=== PATIENT | female | born 1990 | race African-American/Black ===

== ENCOUNTER 2017-06-21 07:09 | Day surgery (SDC) | payer OTHER ==
[~2017-06-21 07:09] MED LIST: HYDROmorphone 2 MG/ML VIAL IV; LIDOCAINE 1% PF 2 ML VIAL. ID; MORPHINE SULFATE 2 MG/ML DISP.SYRIN. IV; ONDANSETRON PF 4 MG/2 ML VIAL. IV; fentaNYL PF VIAL 100 MCG/2 ML VIAL IV
[2017-06-21] MEDS: IV RINGERS,LACTATED 1000ML 1,000 ML IV (08:47)
[2017-06-21] MEDS: ALBUTEROL SULFATE 2.5 MG/3 ML NEBU. NEB (09:03)
[2017-06-21] MEDS ORDERED: fentaNYL PF VIAL 100 MCG/2 ML VIAL ×2 (09:13→10:36)
[2017-06-21] MEDS ORDERED: MIDAZOLAM HCL/PF 2 MG/2 ML VIAL. (09:13)
[2017-06-21] MEDS ORDERED: ONDANSETRON PF 4 MG/2 ML VIAL. (09:13)
[2017-06-21] MEDS ORDERED: DEXAMETHASONE SOD PHOS 20 MG/5 ML VIAL. (09:13)
[2017-06-21] MEDS ORDERED: PROPOFOL 20 ML IV (09:13)
[2017-06-21] MEDS ORDERED: SEVOFLURANE 31 TO 60 MINUTES. IH (10:34)
[2017-06-21] MEDS ORDERED: SEVOFLURANE 61 TO 120 MINUTES. IH (10:34)
[2017-06-21] MEDS ORDERED: SEVOFLURANE 16 TO 30 MINUTES. IH (10:34)
[2017-06-21 10:50] LABS: U PREG PATIENT NEGATIVE (NEG)
[2017-06-21 10:51] LABS: NEG OBC UR NEG; POS OBC UR POS
[2017-06-21] MEDS: fentaNYL PF VIAL 100 MCG/2 ML VIAL IV ×2 (11:33→11:57)
[2017-06-21] MEDS: PROCHLORPERAZINE 10 MG/2 ML VIAL. IV (11:57)
[2017-06-21] MEDS: HYDROcodone/APAP 5/325MG 1 TAB TABLET PO (12:10)
== END 2017-06-21 12:56 | disposition home or self-care (01) ==
LOC: SURG 07:09
DX: N93.9 Abnormal uterine and vaginal bleeding, unspecified (principal); J45.909 Unspecified asthma, uncomplicated; M19.90 Unspecified osteoarthritis, unspecified site; F32.9 Major depressive disorder, single episode, unspecified; Z72.89 Other problems related to lifestyle; Z98.890 Other specified postprocedural states; Z87.39 Personal history of other diseases of the musculoskeletal system and connective tissue; Z90.49 Acquired absence of other specified parts of digestive tract; Z91.040 Latex allergy status; Z88.2 Allergy status to sulfonamides; Z88.8 Allergy status to other drugs, medicaments and biological substances; Z91.018 Allergy to other foods
CPT/HCPCS: 58558; 81025; 88305; 94640; J0780; J1100; J2250; J2405; J2704; J3010; J7030; J7613